=== PATIENT | male | born 1995 | race Caucasian/White ===

== ENCOUNTER 2020-11-17 04:27 | Emergency (ER) | payer BC ==
--- OUTSIDE RECORDS SUMMARY | 2020-11-17 04:31 | XMS REPORT | Continuity of Care Document ---
:1995 Author Organization [facility] t Address [address] [place] [id number] Care Team Providers Name Role Phone Responsible Provider, Not Yet Assigned Attending Clinician Georgette Rogel Attending Clinician [phone] Pancho Pace Attending Clinician Unavailable Tobi Attending Clinician Unavailable Lorne Attending Clinician Unavailable Adam Attending Clinician Unavailable Aguilera MedAdherence Attending Clinician [phone] Provider Attending Clinician Unavailable Adan Attending Clinician Unavailable Cupit Attending Clinician [phone] Josesito MedAdherence Attending Clinician Unavailable Luciana MedAdherence Attending Clinician Unavailable Abimael Attending Clinician Unavailable Elicia Attending Clinician Unavailable Shauna Rust Attending Clinician Cupit Unavailable [phone] Problems Condition Condition Condition Status Onset Resolution Last Treating Co mments Source Name Details Category Date Date Treatment Clinician Date PRe Condition Active 2020-02-04 Cupit, Leg acy Exposure 02-03 12:04:00 Behzad Commun i Prophylaxs 00:00: ty is 00 Health SCREENING, Condition Active 2015-01-19 Memoria PULMONARY 01-19 12:17:10 l TUBERCULOS 00:00: Newton forrester IS SCREENING, 00 PULMONARY TUBERCULOS IS Active 5 Condition 01/19/2015 Medical Group Constipati Problem Active 2018-10-26 M emoria on 10-15 13:55:12 l (disorder) 00:00: Newton forrester Constipati 00 on (disorder) Active 10/15/2014 Problem 10/26/2018 Data migrated from [facility] on 03/03/15. Medical Group CONSTIPATI Condition Active 2015-01-19 Memoria ON 10-15 12:17:10 l 00:00: Michael CONSTIPATI 00 ON Active 5 Condition 01/19/2015 Medical Group UNSPECIFIE Condition Active 2015-01-19 Memoria D 2- 12:17:10 l HEMORRHOID 00:00: Newton n S WITHOUT UNSPECIFIE 00 MENTION OF D COMPLICATI HEMORRHOID ON S WITHOUT MENTION OF COMPLICATI ON Active 5 Condition 01/19/2015 Medical Group OTHER Condition Active 2015-01-19 Mem oria SPEECH 2- 12:17:10 l DISTURBANC OTHER 00:00: Yessica nn E SPEECH 00 DISTURBANC E Active 10/15/2014 Condition 5 Medical Group Keratosis Problem Active 2018-10-26 Me moria pilaris 11-22 13:55:12 l (disorder) 00:00: Newton n Keratosis 00 pilaris (disorder) Active 11/22/2012 Problem 10/26/2018 Data migrated from [employer] on 01/25/15. Medical Group KERATOSIS Condition Active 2015-01-19 Memoria PILARIS 11-22 12:17:10 l 00:00: Michael KERATOSIS 00 PILARIS Active 11/22/2012 Condition 5 Medical Group Asthma Problem Active 2011-082018-10-26 Memor ia (disorder) 0-31 13:55:12 l Asthma 00:00: [place] (disorder) 00 Active 06/26/2012 Problem 10/26/2018 Data migrated from [employer] on 01/25/15. Medical Group WELL CHILD Condition Active 2011-082015-01-19 Memoria EXAMINATIO 0-31 12:17:10 l N WELL 00:00: [place] CHILD 00 EXAMINATIO N Active 06/26/2012 Condition 5 Medical Group ASTHMA Condition Active 2011-082015-01-19 Mem oria 0-31 12:17:10 l ASTHMA 00:00: Michael 00 Active 06/26/2012 Condition 5 Medical Group Acne Problem Active 2010-082018-10-26 Memor ia vulgaris 0-12 13:55:12 l (disorder) Acne 00:00: Newton n vulgaris 00 (disorder) Active 06/07/2011 Problem 10/26/2018 Data migrated from [facility] on 01/25/15. Medical Group ACNE Condition Active 2010-082015-01-19 Mem oria VULGARIS 0-12 12:17:10 l ACNE 00:00: [place] VULGARIS 00 Active 06/07/2011 Condition 5 Medical Group Allergic Problem Active 2009-082018-10-26 Mem oria rhinitis 0-05 13:55:12 l (disorder) Allergic 00:00: He rmann rhinitis 00 (disorder) Active 05/31/2010 Problem 10/26/2018 Data migrated from [facility] on 01/25/15. Medical Group ALLERGIC Condition Active 2009-082015-01-19 M emoria RHINITIS 0-05 12:17:10 l ALLERGIC 00:00: Newton n RHINITIS 00 Active 05/31/2010 Condition 5 Medical Group Medical Problem Active 2018-10-26 Paul julieta examinatio 13:55:12 l ns/reports Medical Her oliver status examinatio (finding) ns/reports status (finding) Active Problem 10/26/2018 Medical Group Recurrent Problem Active 2018-10-26 Me moria oral 13:55:12 l herpes Michael simplex Recurrent infection oral (disorder) herpes simplex infection (disorder) Active Problem 10/26/2018 Medical Group Streptococ Problem Resolve 2018-10-26 2018-10-26 Memoria lyssa sore d 5-16 13:55:12 13:55:12 l throat 00:00: Michael (disorder) Streptococ 00 lyssa sore throat (disorder) Resolved 01/09/2014 Problem 10/26/2018 Data migrated from [facility] on 03/12/15. Medical Group Otitis Problem Resolve 2018-10-26 2018-10-26 Memoria externa d 2-10 13:55:12 13:55:12 l (disorder) Otitis 00:00: Herm kamaljit externa 00 (disorder) Resolved 10/06/2010 Problem 10/26/2018 Data migrated from [facility] on 03/12/15. Medical Group Acute Problem Resolve 2009-082018-10-26 2018-10-26 Memoria pharyngiti d 0-05 13:55:12 13:55:12 l s Acute 00:00: Michael (disorder) pharyngiti 00 s (disorder) Resolved 05/31/2010 Problem 10/26/2018 Data migrated from [facility] on 03/12/15. Medical Group Viral Problem Resolve 2009-082018-10-26 2018-10-26 Memoria disease d 0-05 13:55:12 13:55:12 l (disorder) Viral 00:00: Yessica nn disease 00 (disorder) Resolved 05/31/2010 Problem 10/26/2018 Data migrated from [facility] on 03/12/15. Medical Group History of Past Illness Condition Condition Condition Status Onset Resolution Last Treating Co mments Source Name Details Category Date Date Treatment Clinician Date STREPTOCOC Condition Inactiv 2015-01-19 2015-01-19 Memoria LYSSA e 01-09 12:17:10 12:17:10 l PHARYNGITI 00:00: Newton n S STREPTOCOC 00 LYSSA PHARYNGITI S Inactive 01/09/2014 Condition 5 Medical Group OTITIS Condition Inactiv 2015-01-19 2015-01-19 Memoria EXTERNA e 2-10 12:17:10 12:17:10 l OTITIS 00:00: Michael EXTERNA 00 Inactive 10/06/2010 Condition 5 Medical Group FLU SHOT Condition Inactiv 2009-082015-01-19 2015-01-19 Memoria e 2-20 12:17:10 12:17:10 l FLU SHOT 00:00: Newton n 00 Inactive 08/15/2010 Condition 5 Medical Group ACUTE Condition Inactiv 2009-082015-01-19 2015-01-19 Memoria PHARYNGITI e 0-05 12:17:10 12:17:10 l S ACUTE 00:00: Michael PHARYNGITI 00 S Inactive 05/31/2010 Condition 5 Medical Group ASTHMA Condition Inactiv 2009-082015-01-19 2015-01-19 Memoria UNSPECIFIE e 0-05 12:17:10 12:17:10 l D WITH ASTHMA 00:00: Michael EXACERBATI UNSPECIFIE 00 ON D WITH EXACERBATI ON Inactive 05/31/2010 Condition 5 Medical Group VIRAL Condition Inactiv 2009-082015-01-19 2015-01-19 Memoria INFECTION e 0-05 12:17:10 12:17:10 l VIRAL 00:00: [place] INFECTION 00 Inactive 05/31/2010 Condition 5 Medical Group Allergies, Adverse Reactions, Alerts This patient has no known allergies or adverse reactions. Social History Social Habit Start Date Stop Date Quantity Comments Source social history 2020-08-12 2020-08-12 reviewed today [facility] reviewed E&M 15:32:43 15:32:43 Health drug use 2020-02-04 2020-02-04 Never [facility] ty 09:43:28 09:43:28 Health alcohol use 2020-02-04 2020-02-04 Never [facility] 09:43:28 09:43:28 Health patient considered 2020-02-04 2020-02-04 No [facility] to be homeless 09:43:28 09:43:28 Health passive cigarette 2020-02-04 2020-02-04 No [facility] smoke exposure 09:43:28 09:43:28 Health if the patient is 2020-02-04 2020-02-04 No [facility] using/has used a 09:43:28 09:43:28 Health vaping item, Current, Former, Never Used, Not asked Social History 2018-04-08 2018-04-08 [facility] 19:03:19 19:03:19 Smoking Status Start Date Stop Date Source Never smoked tobacco (finding) L [facility] Health Medications Ordered Filled Start Stop Current Ordering Indication Dosage Frequency Signature Comments Components Source Medication Medication Date Date Medication? Clinician (SIG) Name Name (EMTRICITAB Yes Georgette L 1{Table 1xD Take 1 [facility] INE-TENOFOV 6-15 Chanel t} tablet Commun i IR DF) 00:00: daily ty 200-300 MG 00 Health TABS DESCOVY 2020- No 1{Table 1xD 1 tab by Melody yu (EMTRICITAB 6-10 06-15 t} mouth Commun i INE-TENOFOV 00:00: 00:00 daily ty IR AF) 00 :00 Health 200-25 MG TABS acyclovir No 800 mg = 1 Me moria 800 mg oral 8-13 tab, PO, l tablet 19:33: Q8H, X 2 [place] day, # 6 tab, 2 Refill(s), [facility] [address] [place] [address] 2015-0 Yes Inser Memoria 2.5 % CREA 2-19 applicator l 00:00: tip in rectum and apply twice daily for 2-3 weeks SOLODYN 2013-0 Yes 1 tab Memoria [id number] 2-03 daily for l 00:00: acne TAZORAC 2013-0 Yes apply to Memori a CREA 2-03 face for l 00:00: acne PROAIR HFA 2011-08 Yes 2 puffs Paul julieta 108 (90 0-31 every l BASE) 00:00: 4-6hrs prn Newton n MCG/ACT 00 cough AERS PROAIR HFA 2011-08 Yes 2 puffs Paul julieta 108 (90 0-31 every l BASE) 00:00: 4-6hrs prn Newton n MCG/ACT 00 cough AERS CIPRODEX No instill Memori a 0.3-0.1 % 2-10 3-4 drops l SUSP 00:00: in affected ear tid for 7 days CIPRODEX No instill Memori a 0.3-0.1 % 2-10 3-4 drops l SUSP 00:00: in affected ear tid for 7 days CIPRODEX No instill Memori a 0.3-0.1 % 2-10 3-4 drops l SUSP 00:00: in affected ear tid for 7 days AUGMENTIN 0 No take one Paul julieta 875-125 MG 9-16 tab twice l TABS 00:00: daily for 14 days AUGMENTIN 0 No take one Paul julieta 875-125 MG 9-16 tab twice l TABS 00:00: daily for 14 days ALBUTEROL Yes Memoria SULFATE 9-09 l (2.5 00:00: Michael MG/3ML) 00 0.083% NEBU NEBULIZER/T No Memori a UBING/MOUTH 9-09 l PIECE KIT 00:00: ALBUTEROL Yes Memoria SULFATE 9-09 l (2.5 00:00: Michael MG/3ML) 00 0.083% NEBU Vital Signs Vital Name Observation Time Observation Value Comments Source oxygen saturation, 2020-02-04 09:43:28 97 /min Melody yu [facility] oximetry Health blood pressure, 2020-02-04 09:43:28 70 mm[Hg] [facility] diastolic Health blood pressure, 2020-02-04 09:43:28 121 mm[Hg] [facility] systolic Health respiratory rate E&M 2020-02-04 09:43:28 20 /min [facility] Health pulse rate 2020-02-04 09:43:28 93 /min [facility] Health temperature E&M 2020-02-04 09:43:28 98.6 [degF] [facility]&M 2020-02-04 09:43:28 223 [lb_av] [facility] weight in kilograms 2020-02-04 09:43:28 101.36 kg L [facility] E&M Health height in 2020-02-04 09:43:28 193.04 [facility] centimeters E[facility]M Health Weight 2018-04-08 19:01:00 [facility] [place] BMI Calculated 2018-04-08 19:01:00 Memori al Michael Height 2018-04-08 19:01:00 190.5 cm [facility] [place] Respitory Rate 2018-04-08 19:01:00 Memori al [place] Temperature Oral (F) 2018-04-08 19:01:00 98.6 F [facility] Heart Rate 2018-04-08 19:01:00 [facility] Systolic (mm Hg) 2018-04-08 19:01:00 Paul rial [place] Diastolic (mm Hg) 2018-04-08 19:01:00 Mem orial Michael Weight 2014-10-15 22:32:31 [facility] Temperature Oral (F) 2014-10-15 22:32:31 98.7 F [facility] Height 2014-10-15 22:32:31 [facility] [place] Respitory Rate 2014-10-15 22:32:31 Memori al Michael Heart Rate 2014-10-15 22:32:31 [facility] [place] Systolic (mm Hg) 2014-10-15 22:32:31 Paul rial [place] Diastolic (mm Hg) 2014-10-15 22:32:31 Mem orial Michael Height 2014-06-08 21:34:51 [facility] Weight 2014-06-08 21:34:51 [facility] [place] Temperature Oral (F) 2014-06-08 21:34:51 98 F [facility] [place] Respitory Rate 2014-06-08 21:34:51 Memori al Michael Heart Rate 2014-06-08 21:34:51 [facility] Systolic (mm Hg) 2014-06-08 21:34:51 Paul rial Michael Diastolic (mm Hg) 2014-06-08 21:34:51 Mem orial Michael Weight 2014-01-09 16:45:21 [facility] Temperature Oral (F) 2014-01-09 16:45:21 99.4 F [facility] [place] Respitory Rate 2014-01-09 16:45:21 Memori al Michael Heart Rate 2014-01-09 16:45:21 [facility] [place] Systolic (mm Hg) 2014-01-09 16:45:21 Paul rial [place] Diastolic (mm Hg) 2014-01-09 16:45:21 Mem orial Michael Height 2013-09-29 21:47:50 [facility] Weight 2013-09-29 21:47:50 [facility] Temperature Oral (F) 2013-09-29 21:47:50 97 F [facility] Respitory Rate 2013-09-29 21:47:50 Memori al Michael Heart Rate 2013-09-29 21:47:50 [facility] [place] Systolic (mm Hg) 2013-09-29 21:47:50 Paul rial Michael Diastolic (mm Hg) 2013-09-29 21:47:50 Mem orial [place] Height 2013-06-25 20:53:31 [facility] Weight 2013-06-25 20:53:31 [facility] Temperature Oral (F) 2013-06-25 20:53:31 98 F [facility] Respitory Rate 2013-06-25 20:53:31 Memori al [place] Heart Rate 2013-06-25 20:53:31 [facility] Michael Systolic (mm Hg) 2013-06-25 20:53:31 Paul rial [place] Diastolic (mm Hg) 2013-06-25 20:53:31 Mem orial [place] Height 2012-11-22 19:13:41 [facility] Michael Weight 2012-11-22 19:13:41 [facility] Temperature Oral (F) 2012-11-22 19:13:41 98.7 F [facility] Respitory Rate 2012-11-22 19:13:41 Memori al Michael Heart Rate 2012-11-22 19:13:41 [facility] Systolic (mm Hg) 2012-11-22 19:13:41 Paul rial Michael Diastolic (mm Hg) 2012-11-22 19:13:41 Mem orial Michael Height 2012-06-26 20:27:50 [facility] [place] Weight 2012-06-26 20:27:50 [facility] Michael Respitory Rate 2012-06-26 20:27:50 Memori al [place] Systolic (mm Hg) 2012-06-26 20:27:50 Paul rial [place] Diastolic (mm Hg) 2012-06-26 20:27:50 Mem orial [place] Temperature Oral (F) 2012-06-26 20:27:50 98.5 F [facility] Michael Heart Rate 2012-06-26 20:27:50 [facility] Weight 2011-06-07 20:37:10 [facility] [place] Height 2011-06-07 20:37:10 [facility] Michael Temperature Oral (F) 2011-06-07 20:37:10 98.9 F [facility] Respitory Rate 2011-06-07 20:37:10 Memori al Michael Weight 2010-10-06 20:45:21 [facility] Temperature Oral (F) 2010-10-06 20:45:21 98.7 F [facility] [place] Respitory Rate 2010-10-06 20:45:21 Memori al [place] Weight 2010-05-31 18:36:12 [facility] Michael Respitory Rate 2010-05-31 18:36:12 Memori al [place] Heart Rate 2010-05-31 18:36:12 [facility] [place] Temperature Oral (F) 2010-05-31 18:36:12 98.7 F [facility] Height 2010-05-31 18:36:12 [facility] Height 2009-03-01 16:29:16 [facility] Weight 2009-03-01 16:29:16 [facility] [place] Temperature Oral (F) 2009-03-01 16:29:16 99.2 F [facility] [place] Heart Rate 2009-03-01 16:29:16 [facility] Michael Respitory Rate 2009-03-01 16:29:16 Memori al [place] Systolic (mm Hg) 2009-03-01 16:29:16 Paul rial [place] Diastolic (mm Hg) 2009-03-01 16:29:16 Mem orial Michael Height 2008-04-13 16:29:16 [facility] [place] Weight 2008-04-13 16:29:16 [facility] Temperature Oral (F) 2008-04-13 16:29:16 98.7 F [facility] [place] Heart Rate 2008-04-13 16:29:16 [facility] Respitory Rate 2008-04-13 16:29:16 Memori al Michael Systolic (mm Hg) 2008-04-13 16:29:16 Paul rial [place] Diastolic (mm Hg) 2008-04-13 16:29:16 Mem orial [place] Height 2006-09-11 17:29:16 [facility] Weight 2006-09-11 17:29:16 [facility] Temperature Oral (F) 2006-09-11 17:29:16 98.0 F [facility] [place] Heart Rate 2006-09-11 17:29:16 [facility] Respitory Rate 2006-09-11 17:29:16 Memori al Michael Systolic (mm Hg) 2006-09-11 17:29:16 Paul rial [place] Diastolic (mm Hg) 2006-09-11 17:29:16 Mem orial Michael Height 2006-04-04 16:29:16 [facility] Weight 2006-04-04 16:29:16 [facility] [place] Temperature Oral (F) 2006-04-04 16:29:16 98.6 F [facility] [place] Heart Rate 2006-04-04 16:29:16 [facility] Michael Respitory Rate 2006-04-04 16:29:16 Memori al [place] Systolic (mm Hg) 2006-04-04 16:29:16 Paul rial [place] Diastolic (mm Hg) 2006-04-04 16:29:16 Mem orial [place] Height 2005-03-30 16:29:16 [facility] Weight 2005-03-30 16:29:16 [facility] [place] Temperature Oral (F) 2005-03-30 16:29:16 98.3 F [facility] Heart Rate 2005-03-30 16:29:16 [facility] [place] Respitory Rate 2005-03-30 16:29:16 Memori al Michael Systolic (mm Hg) 2005-03-30 16:29:16 Paul rial [place] Diastolic (mm Hg) 2005-03-30 16:29:16 Mem orial Michael Height 2003-03-06 16:29:16 [facility] [place] Weight 2003-03-06 16:29:16 [facility] [place] Temperature Oral (F) 2003-03-06 16:29:16 100.0 F [facility] Heart Rate 2003-03-06 16:29:16 [facility] [place] Respitory Rate 2003-03-06 16:29:16 Memori al Michael Systolic (mm Hg) 2003-03-06 16:29:16 Paul rial [place] Diastolic (mm Hg) 2003-03-06 16:29:16 Mem orial [place] Height 2002-05-05 16:29:16 [facility] Weight 2002-05-05 16:29:16 [facility] Temperature Oral (F) 2002-05-05 16:29:16 99.5 F [facility] [place] Heart Rate 2002-05-05 16:29:16 [facility] [place] Respitory Rate 2002-05-05 16:29:16 Memori al Michael Systolic (mm Hg) 2002-05-05 16:29:16 Paul rial Michael Diastolic (mm Hg) 2002-05-05 16:29:16 Mem orial Michael Height 1999-10-31 17:29:16 [facility] [place] Weight 1999-10-31 17:29:16 [facility] [place] Temperature Oral (F) 1999-10-31 17:29:16 100.5 F [facility] Height 1999-04-05 16:29:16 [facility] Weight 1999-04-05 16:29:16 [facility] Temperature Oral (F) 1999-04-05 16:29:16 98.5 F [facility] Height 1998-12-13 16:29:16 [facility] [place] Weight 1998-12-13 16:29:16 [facility] [place] Temperature Oral (F) 1998-12-13 16:29:16 99.3 F [facility] [place] Height 1998-09-14 17:29:16 [facility] [place] Weight 1998-09-14 17:29:16 [facility] Temperature Oral (F) 1998-09-14 17:29:16 98.6 F [facility] [place] Height 1998-06-09 16:29:16 [facility] Weight 1998-06-09 16:29:16 [facility] Temperature Oral (F) 1998-06-09 16:29:16 98.8 F [facility] [place] Height 1998-03-11 16:29:16 [facility] [place] Weight 1998-03-11 16:29:16 [facility] Temperature Oral (F) 1998-03-11 16:29:16 99.3 F [facility] [place] Height 1998-01-04 16:29:16 [facility] [place] Weight 1998-01-04 16:29:16 [facility] Temperature Oral (F) 1998-01-04 16:29:16 98.9 F [facility] [place] Height 1997 17:29:16 [facility] Weight 1997 17:29:16 [facility] Temperature Oral (F) 1997 17:29:16 98.3 F [facility] Height 1997 17:29:16 [facility] [place] Weight 1997 17:29:16 [facility] Temperature Oral (F) 1997 17:29:16 99.4 F [facility] [place] Procedures Procedure Date / Time Performed Performing Clinician [facility] 2020-03-01 16:40:26 Mirta Arellanou nitcarrie Education/Supportive Health Counseling Health 2020-02-04 09:24:49 ProviderSky Education/[facility] Services Health Counseling Encounters Start End Encounter Admission Attending Care Care Encounter Source Date/Time Date/Time Type Type Clinicians Facility Department ID 2020-08-13 2020-08-13 Office Responsible [facility] Encoun ter/ Legacy 00:00:00 00:00:00 Visit Provider, [id number] C ommuni Not Yet [id number] [facility] 2020-08-13 2020-08-13 Office Responsible [facility] Encoun ter/ Legacy 00:00:00 00:00:00 Visit Provider, [id number] C ommuni Not Yet [id number] [facility] 2020-08-12 2020-08-12 Office Georgette Chanel [facility] Enco unter/ Legacy 00:00:00 00:00:00 Visit Ritesh Pace [phone] Communi [id number] [facility] 2020-07-25 2020-07-25 Office Georgette Chanel [facility] Enco unter/ Legacy 00:00:00 00:00:00 Visit Hernan Brittonssica [phone] Communi [id number] ty Health 2020-07-25 2020-07-25 Office Chanel, Georgette [facility] Encoun ter/ Legacy 00:00:00 00:00:00 Visit Khalif [id number] Com gilberto [id number] ty Health 2020-07-16 2020-07-16 Office Chanel, Georgette Cuadra [facility] Enco unter/ Legacy 00:00:00 00:00:00 Visit Elisa Pradhan [id number] Communi [id number] ty Health 2020-07-16 2020-07-16 Office Chanel, Georgette [facility] Encoun ter/ Legacy 00:00:00 00:00:00 Visit Khalif [id number] Com gilberto [id number] ty Health 2020-07-09 2020-07-09 Office Dick Medina [facility] Encounte r/ Legacy 00:00:00 00:00:00 Visit Daylin [id number] Com gilberto [id number] ty Health 2020-06-10 2020-06-10 Office Chanel, Georgette Cuadra [facility] Enco unter/ Legacy 00:00:00 00:00:00 Visit Maegan Watts [id number] Communi [id number] ty Health 2020-03-12 2020-03-12 Office Chanle, Georgette Cuadra [facility] Enco unter/ Legacy 00:00:00 00:00:00 Visit Ritesh Pace [phone] Communi [id number] ty Health 2020-03-01 2020-03-01 Office Provider, [facility] Encounter/ Legacy 00:00:00 00:00:00 Visit Mirta Arellano [id number] Communi [id number] ty Health 2020-02-12 2020-02-12 Office Cupit, [facility] Encounter/ Legacy 00:00:00 00:00:00 Visit Behzad [id number] Com gilberto 860294 ty Health 2020-02-09 2020-02-09 Office Cupit, [facility] Encounter/ Legacy 00:00:00 00:00:00 Visit Behzad [id number] Com gilberto 528278 ty Health 2020-02-09 2020-02-09 Office Cupit, [facility] Encounter/ Legacy 00:00:00 00:00:00 Visit Behzad [id number] Com gilberto [id number] ty Health 2020-02-06 2020-02-06 Office Cupit, [facility] Encounter/ Legacy 00:00:00 00:00:00 Visit Behzad [id number] Com gilberto 217754 ty Health 2020-02-05 2020-02-05 Office Cupit, Behzad ARNOLD Enc nter/ Legacy 00:00:00 00:00:00 Visit Josesito Mariee Madeline [id number] Kevin Mariee Michelle [id number] ty Health 2020-02-04 2020-02-04 Office Cupit, [facility] Encounter/ Legacy 00:00:00 00:00:00 Visit Behzad [id number] Com gilberto 930556 ty Health 2020-02-04 2020-02-04 Office Cupit, [facility] Encounter/ Legacy 00:00:00 00:00:00 Visit Behzad [id number] Com gilberto 691140 ty Health 2020-02-04 2020-02-04 Office Cupit, [facility] Encounter/ Legacy 00:00:00 00:00:00 Visit Behzad [id number] Com gilberto [id number] ty Health 2020-02-04 2020-02-04 Office Cupit, Behzad DUNN [facility] Encou nter/ Legacy 00:00:00 00:00:00 Visit Iris Varghese [id number] Communi [id number] Health 2020-02-04 2020-02-04 Office Provider, Public Health Services [facility] Encounter/ Legacy 00:00:00 00:00:00 Visit Heriberto Rubi [id number] Communi [id number] ty Health 2020-02-04 2020-02-04 Office Cupit, [facility] Encounter/ Legacy 00:00:00 00:00:00 Visit Behzad [id number] Com gilberto [id number] Health 2018-04-08 2018-04-08 Outpatient [facility] [id number] 13:45:00 23:59:59 Amada Merlos [facility] 2018-04-04 2018-04-05 Outpatient [facility] [id number] 13:25:00 23:59:59 06 2018-04-01 2018-04-02 Outpatient [facility] [id number] 15:25:00 23:59:59 05 2017-08-17 2017-08-18 Outpatient [facility] [id number] 10:22:00 23:59:59 04 Results Test Description Test Time Test Comments Results Result Comments Source HIV-CMIA (Chemiluminescent Microparticle Immuno Assay) 07-16 12:51:00 Test Item Value Reference Range Interpretation Comme nts HIV-CMIA (Chemiluminescent Microparticle Immuno Assay) Non R eactive Non Reactive (test code = 699496) [facility] [id number] 12:51:00 Test Item Value Reference Range Interpretation Comments rapid plasma reagin antibody, Non Reactive Non Reactive serum (test code = 5291-0) [facility]), [id number] 12:51:00 Test Item Value Reference Range Interpretation Comments alanine aminotransferase (SGPT), serum 18 1/L 0-44 (test code = 1742-6) [facility] ([facility]), [id number] 12:51:00 Test Item Value Reference Range Interpretation Comments aspartate aminotransferase (SGOT), 17 1/L 0-40 serum (test code = 1920-8) [facility], [id number] 12:51:00 Test Item Value Reference Range Interpretation Comments alkaline phosphatase, serum (test code 52 1/L 39-117 = 1783-0) [facility], [id number] 12:51:00 Test Item Value Reference Range Interpretation Comments bilirubin, serum, total (test code 0.7 mg/dL 0.0-1.2 = 1975-2) [facility] ratio, [id number] 12:51:00 Test Item Value Reference Range Interpretation Comments albumin/globulin ratio, serum (test 2.3 1.2-2.2 H code = 1759-0) [facility] [id number] 12:51:00 Test Item Value Reference Range Interpretation Comments globulin, serum (test code = 2336-6) 2.2 1.5-4.5 [facility], [id number] 12:51:00 Test Item Value Reference Range Interpretation Comments albumin, serum (test code = 1751-7) 5.0 g/dL 4.1-5.2 [facility], total, [id number] 12:51:00 Test Item Value Reference Range Interpretation Comments protein, total, serum (test code = 7.2 g/dL 6.0-8.5 2885-2) [facility], [id number] 12:51:00 Test Item Value Reference Range Interpretation Comments calcium, serum (test code = 1999-) 9.8 mg/dL 8.7-10.2 [facility], venous [id number] 12:51:00 Test Item Value Reference Range Interpretation Comments carbon dioxide, venous blood (test 24 mmol/L code = 2027-1) [facility]chloride, [id number] 12:51:00 Test Item Value Reference Range Interpretation Comments chloride, serum (test code = 101 mmol/L 96-106 5-0) [facility]potassium, [id number] 12:51:00 Test Item Value Reference Range Interpretation Comments potassium, serum (test code = 4.1 mmol/L 3.5-5.2 2823-3) [facility] Hospitalsodium, [id number] 12:51:00 Test Item Value Reference Range Interpretation Comments sodium, serum (test code = 2951-2) 140 mmol/L 134-144 [facility]urea nitrogen/creatinine ratio, [id number] 12:51:00 Test Item Value Reference Range Interpretation Comments urea nitrogen/creatinine ratio, serum 05-16 (test code = 3097-3) [facility] HospitaleGFR if [id number] 12:51:00 Test Item Value Reference Range Interpretation Comments eGFR if 147 >59 (test code = 77467-1) mL/min/((173/100).m2) [facility] HospitalEstimated Glomerular Filtration Rate (calc)2020-07-16 12:51:00 Test Item Value Reference Range Interpretation Comments Estimated Glomerular 127 >59 Filtration Rate (calc) mL/min/((173/100).m2 (test code = 79810-1) ) [facility]creatinine, [id number] 12:51:00 Test Item Value Reference Range Interpretation Comments creatinine, serum (test code = 0.79 mg/dL 0.76-1.27 2160-0) [facility] nitrogen, [id number] 12:51:00 Test Item Value Reference Range Interpretation Comments urea nitrogen, blood (test code = 9 mg/dL 6-20 3094-0) [facility]blood glucose, [id number] 12:51:00 Test Item Value Reference Range Interpretation Comments blood glucose, random (test code = 87 mg/dL 65-99 2339-0) [facility] HospitalNeisseria gonorrhoeae, throat [id number] 15:24:00 Test Item Value Reference Range Interpretation Comments Neisseria gonorrhoeae, throat Negative Negative culture (test code = 3553) [facility] HospitalGonorrhea Culture [id number] 15:24:00 Test Item Value Reference Range Interpretation Comments Gonorrhea Culture Rectum (test code Negative Negative = 26914498) [facility] Hospitalhepatitis A antibody, [id number] 11:22:00 Test Item Value Reference Range Interpretation Comments hepatitis A antibody, total (test Negative Negative code = 75) [facility] HospitalHIV-CMIA (Chemiluminescent Microparticle Immuno Assay) 2020-02-04 11:22:00 Test Item Value Reference Range Interpretation Comments HIV-CMIA (Chemiluminescent Non Reactive Non Reactive Microparticle Immuno Assay) (test code = 779622) [facility] Hospitalrapid plasma reagin antibody, [id number] 11:22:00 Test Item Value Reference Range Interpretation Comments rapid plasma reagin antibody, Non Reactive Non Reactive serum (test code = 5291-0) [facility] HospitalNeisseria gonorrhoeae DNA [id number] 11:22:00 Test Item Value Reference Range Interpretation Comments Neisseria gonorrhoeae DNA probe Negative Negative (test code = 98714-8) [facility] Hospitalchlamydia DNA [id number] 11:22:00 Test Item Value Reference Range Interpretation Comments chlamydia DNA probe (test code = Negative Negative 43438-8) [facility] Hospitalalanine aminotransferase (SGPT), [id number] 11:22:00 Test Item Value Reference Range Interpretation Comments alanine aminotransferase (SGPT), serum 17 1/L 0-44 (test code = 1742-6) [facility] Hospitalaspartate aminotransferase (SGOT), [id number] 11:22:00 Test Item Value Reference Range Interpretation Comments aspartate aminotransferase (SGOT), 11 1/L 0-40 serum (test code = 1920-8) [facility] Hospitalalkaline phosphatase, [id number] 11:22:00 Test Item Value Reference Range Interpretation Comments alkaline phosphatase, serum (test code 56 1/L 39-117 = 1783-0) [facility] Healthbilirubin, serum, [id number] 11:22:00 Test Item Value Reference Range Interpretation Comments bilirubin, serum, total (test code 0.8 mg/dL 0.0-1.2 = 1975-2) [facility] Healthalbumin/globulin ratio, [id number] 11:22:00 Test Item Value Reference Range Interpretation Comments albumin/globulin ratio, serum (test 2.1 1.2-2.2 code = 1759-0) [facility] Healthglobulin, [id number] 11:22:00 Test Item Value Reference Range Interpretation Comments globulin, serum (test code = 2336-6) 2.3 1.5-4.5 [facility] Healthalbumin, [id number] 11:22:00 Test Item Value Reference Range Interpretation Comments albumin, serum (test code = 1751-7) 4.9 g/dL 4.1-5.2 [facility] Healthprotein, total, [id number] 11:22:00 Test Item Value Reference Range Interpretation Comments protein, total, serum (test code = 7.2 g/dL 6.0-8.5 2885-2) [facility]calcium, [id number] 11:22:00 Test Item Value Reference Range Interpretation Comments calcium, serum (test code = 1999-8) 9.9 mg/dL 8.7-10.2 [facility] Hospitalcarbon dioxide, venous [id number] 11:22:00 Test Item Value Reference Range Interpretation Comments carbon dioxide, venous blood (test 24 mmol/L 20- code = 7-1) [facility] Hospitalchloride, [id number] 11:22:00 Test Item Value Reference Range Interpretation Comments chloride, serum (test code = 103 mmol/L 96-106 2075-0) [facility] Healthpotassium, [id number] 11:22:00 Test Item Value Reference Range Interpretation Comments potassium, serum (test code = 4.1 mmol/L 3.5-5.2 2823-3) [facility] Healthsodium, [id number] 11:22:00 Test Item Value Reference Range Interpretation Comments sodium, serum (test code = 2951-2) 139 mmol/L 134-144 [facility]urea nitrogen/creatinine ratio, [id number] 11:22:00 Test Item Value Reference Range Interpretation Comments urea nitrogen/creatinine ratio, serum 15 9-20 (test code = 3097-3) [facility] HealtheGFR if [id number] 11:22:00 Test Item Value Reference Range Interpretation Comments eGFR if 151 >59 (test code = 80889-6) mL/min/((173/100).m2) [facility] HospitalEstimated Glomerular Filtration Rate (calc)2020-02-04 11:22:00 Test Item Value Reference Range Interpretation Comments Estimated Glomerular 131 >59 Filtration Rate (calc) mL/min/((173/100).m2 (test code = 28558-4) ) [facility] Hospitalcreatinine, [id number] 11:22:00 Test Item Value Reference Range Interpretation Comments creatinine, serum (test code = 0.74 mg/dL 0.76-1.27 L 2160-0) [facility] Hospitalurea nitrogen, [id number] 11:22:00 Test Item Value Reference Range Interpretation Comments urea nitrogen, blood (test code = 11 mg/dL 6-20 3094-0) [facility] Hospitalblood glucose, [id number] 11:22:00 Test Item Value Reference Range Interpretation Comments blood glucose, random (test code = 91 mg/dL 65-99 2339-0) [facility] Hospitalimmature granulocytes, percentage of total cells, blood 2020-02-04 11:22:00 Test Item Value Reference Range Interpretation Comments immature granulocytes, percentage of 0 % total cells, blood (test code = 33367-5) [facility] Hospitalbasophil count, [id number] 11:22:00 Test Item Value Reference Range Interpretation Comments basophil count, absolute (test 0.0 x10E3/uL 0.0-0.2 code = 55608-2) [facility] HealthEosinophil Absolute [id number] 11:22:00 Test Item Value Reference Range Interpretation Comments Eosinophil Absolute Count (test 0.0 X10E3/UL 0.0-0.4 code = 49388-4) [facility] Healthmonocyte count, blood, [id number] 11:22:00 Test Item Value Reference Range Interpretation Comments monocyte count, blood, automated 0.5 X10E3/UL 0.1-0.9 (test code = 742-7) [facility] Hospitallymphocyte count, blood, [id number] 11:22:00 Test Item Value Reference Range Interpretation Comments lymphocyte count, blood, 2.4 X10E3/UL 0.7-3.1 automated (test code = 731-0) [facility] HospitalAbsolute [id number] 11:22:00 Test Item Value Reference Range Interpretation Comments Absolute Neutrophils (test code 3.7 X10E3/UL 1.4-7.0 = 03125-3) [facility] Healthbasophils as percent of blood [id number] 11:22:00 Test Item Value Reference Range Interpretation Comments basophils as percent of blood 1 % leukocytes (test code = 707-0) [facility]aleosinophils as percent of blood atodppxbhv0396-35-18 11:22:00 Test Item Value Reference Range Interpretation Comments eosinophils as percent of blood 0 % leukocytes (test code = 713-8) [facility] Healthmonocytes as percent of blood [id number] 11:22:00 Test Item Value Reference Range Interpretation Comments monocytes as percent of blood 8 % leukocytes (test code = 5905-5) [facility] Hospitallymphocytes as percent of blood [id number] 11:22:00 Test Item Value Reference Range Interpretation Comments lymphocytes as percent of blood 36 % leukocytes (test code = 736-9) [facility] Hospitalneutrophils as percent of blood [id number] 11:22:00 Test Item Value Reference Range Interpretation Comments neutrophils as percent of blood 55 % leukocytes (test code = 770-8) [facility] Hospitalplatelet [id number] 11:22:00 Test Item Value Reference Range Interpretation Comments platelet count (test code = 283 X10E3/UL 150-450 777-3) [facility] Hospitalred blood cell distribution [id number] 11:22:00 Test Item Value Reference Range Interpretation Comments red blood cell distribution width 11.7 % 11.6-15.4 (test code = 788-0) [facility] corpuscular hemoglobin concentration, [id number] 11:22:00 Test Item Value Reference Range Interpretation Comments mean corpuscular hemoglobin 34.0 G/DL 31.5-35.7 concentration, RBC (test code = 786-4) [facility] corpuscular hemoglobin, [id number] 11:22:00 Test Item Value Reference Range Interpretation Comments mean corpuscular hemoglobin, RBC 32.0 pg 26.6-33.0 (test code = 785-6) [facility] corpuscular volume, [id number] 11:22:00 Test Item Value Reference Range Interpretation Comments mean corpuscular volume, RBC (test code 94 fL 79-97 = 787-2) [facility] Hospitalhematocrit, [id number] 11:22:00 Test Item Value Reference Range Interpretation Comments hematocrit, blood (test code = 4544-3) 46.7 % 37.5-51.0 [facility] Hospitalhemoglobin, [id number] 11:22:00 Test Item Value Reference Range Interpretation Comments hemoglobin, blood (test code = 15.9 g/dL 13.0-17.7 718-7) [facility] Hospitalerythrocyte (RBC) [id number] 11:22:00 Test Item Value Reference Range Interpretation Comments erythrocyte (RBC) count (test 4.97 X10E6/UL 4.14-5.80 code = 789-8) [facility] Hospitalleukocyte count, [id number] 11:22:00 Test Item Value Reference Range Interpretation Comments leukocyte count, blood (test 6.6 X10E3/UL 3.4-10.8 code = 6690-2) [facility] Hospitalhepatitis C antibody, [id number] 11:22:00 Test Item Value Reference Range Interpretation Comments hepatitis C antibody, serum (test code <0.1 0.0-0.9 = 5199-5) [facility] [id number] 11:22:00 Test Item Value Reference Range Interpretation Comments hepatitis B surface antibody (test Reactive code = 78) [facility] core antibody, [id number] 11:22:00 Test Item Value Reference Range Interpretation Comments hepatitis B core antibody, total Negative Negative (test code = 77) [facility] [place] B surface [id number] 11:22:00 Test Item Value Reference Range Interpretation Comments hepatitis B surface antigen (test Negative Negative code = 79) [facility] HospitalHIV rapid test [id number] 09:23:16 Test Item Value Reference Range Interpretation Comments HIV rapid test results (test code = negative 94743) [facility]
[2020-11-17 05:14] LABS: Absolute Lymphocytes (CBC) 1.6 K/uL (0.7-4.9); Basophils % 0.4 % (0-1.3); Hematocrit 43.8 % (39.6-49.0); Lymphocytes % 14.3 % (15.3-44.8); RBC Red Blood Cell Count 4.69 M/uL (4.33-5.43)
[2020-11-17] MEDS ORDERED: MAGNES/ALUMIN/SIMET 30ML UCUP ONE (05:18)
[2020-11-17] MEDS ORDERED: PANTOPRAZOLE 40 MG INJ ONE (05:18)
[2020-11-17] MEDS ORDERED: ONDANSETRON 4 MG/2 ML VIAL ONE (05:18)
[2020-11-17] MEDS ORDERED: MORPHINE 2 MG/ML SYR ONE (05:18)
[2020-11-17] MEDS ORDERED: NA CHLORIDE 0.9% 1,000 ML ONE (05:18)
[2020-11-17] MEDS ORDERED: LIDOCAINE VISCOUS 2% SOLN 15 ML UDC ONE (05:18)
[2020-11-17 05:29] LABS: ALT/SGPT 24 U/L (12-78); AST/SGOT 13 U/L (15-37); Albumin 4.4 g/dL (3.4-5.0); Alkaline Phosphatase 52 U/L (45-117); BUN Blood Urea Nitrogen 11 mg/dL (7-18); Bicarbonate 28 mmol/L (21-32); Bilirubin Direct 0.1 mg/dL (0-0.2); Bilirubin Total 0.4 mg/dL (0.2-1.0); Glucose Level 105 mg/dL (74-106); Lipase 92 U/L (73-393); Potassium 3.7 mmol/L (3.5-5.1); Protein, Total 7.9 g/dL (6.4-8.2); Sodium Level 141 mmol/L (136-145)
--- NOTE | 2020-11-17 06:32 | ER ---
Nurse's Notes [facility] Name: Chilo Mart Age: 25 yrs Sex: Male : 1995 Arrival Date: 11/17/2020 Time: 04:35 Bed 7 Private MD: Diagnosis: Abdominal tenderness;Functional dyspepsia Presentation: 11/17 04:43 Chief complaint: Patient states: upper abdominal pain that started at midnight, took em some acid reflux medicine but threw up 3 times, denies fever or diarrhea. Coronavirus screen: Client denies travel out of the [place] in the last 14 days. Ebola Screen: Patient negative for fever greater than or equal to 101.5 degrees Fahrenheit, and additional compatible Ebola Virus Disease symptoms Patient denies exposure to infectious person. Patient denies travel to an Ebola-affected area in the 21 days before illness onset. No symptoms or risks identified at this time. Initial Sepsis Screen: Does the patient meet any 2 criteria? No. Patient's initial sepsis screen is negative. Does the patient have a suspected source of infection? No. Patient's initial sepsis screen is negative. Risk Assessment: Do you want to hurt yourself or someone else? Patient reports no desire to harm self or others. Onset of symptoms was November 17, 2020. 04:43 Method Of Arrival: Ambulatory em 04:43 Acuity: JIMENEZ 3 em Historical: - Allergies: 04:48 No Known Allergies; em - Home Meds: 04:48 None [Active]; em - PMHx: 04:48 None; em - Immunization history:: Adult Immunizations up to date. - Social history:: Smoking status: Patient denies any tobacco usage or history of. - Family history:: not pertinent. Screenin:17 Abuse screen: Denies threats or abuse. Denies injuries from another. Nutritional mg2 screening: No deficits noted. Tuberculosis screening: No symptoms or risk factors identified. Fall Risk No IV (0 pts). Assessment: 05:12 General: Appears in no apparent distress. comfortable, Behavior is calm, cooperative. mg2 Pain: Complains of pain in abdomen. Neuro: Level of Consciousness is awake, alert, obeys commands, Oriented to person, place, time, situation. Cardiovascular: Capillary refill < 3 seconds Patient's skin is warm and dry. Respiratory: Airway is patent Respiratory effort is even, unlabored, Respiratory pattern is regular, symmetrical. GI: Bowel sounds present X 4 quads. Abd is soft. GI: Reports upper abdominal pain, vomiting. : No signs and/or symptoms were reported regarding the genitourinary system. EENT: No signs and/or symptoms were reported regarding the EENT system. Derm: Skin is intact, is healthy with good turgor, Skin is pink, warm \T\ dry. normal. Musculoskeletal: Circulation, motion, and sensation intact. Capillary refill < 3 seconds. 06:42 Reassessment: Patient appears in no apparent distress at this time. Patient denies pain mg2 at this time. Patient states feeling better. Patient states symptoms have improved. 06:43 Reassessment: patient up for dc after ultrasound is done and negative/clear. mg2 07:00 Reassessment: Patient appears in no apparent distress at this time. No changes from jl7 previously documented assessment. Patient and/or family updated on plan of care and expected duration. Pain level reassessed. Patient is alert, oriented x 3, equal unlabored respirations, skin warm/dry/pink. 08:00 Reassessment: Patient appears in no apparent distress at this time. No changes from jl7 previously documented assessment. Patient and/or family updated on plan of care and expected duration. Pain level reassessed. Patient is alert, oriented x 3, equal unlabored respirations, skin warm/dry/pink. Vital Signs: 04:43 BP 128 / 85; Pulse 87; Resp 18; Temp 99.1(O); Pulse Ox 99% on R/A; Weight 108.86 kg; em Height 6 ft. 3 in. (190.50 cm); Pain 2/10; 06:43 Pulse 78; Resp 18; Pulse Ox 100% on R/A; Pain 0/10; mg2 08:55 BP 121 / 71; Pulse 78; Resp 17; Pulse Ox 96% ; jl7 04:43 Body Mass Index 30.00 (108.86 kg, 190.50 cm) em ED Course: 04:35 Patient arrived in ED. am4 04:39 Scott Vences RN is Primary Nurse. mg2 04:43 Ernesto Lopez MD is Attending Physician. [facility] 04:47 Triage completed. em 04:48 Arm band placed on. em 05:00 Inserted saline lock: 20 gauge in left upper arm, using aseptic technique. Blood mg2 collected. 05:12 No provider procedures requiring assistance completed. mg2 05:18 Patient has correct armband on for positive identification. mg2 06:01 CT Abd/Pelvis - IV Contrast Only In Process Unspecified. EDMS 06:30 Rosi Mitchell MD is Referral Physician. maryanne 06:32 Nestor Soliman MD is Referral Physician. maryanne 06:48 Abdomen Exam Limited In Process Unspecified. EDMS 07:08 Primary Nurse role handed off by Scott Vences, ANJALI bd 07:14 Veronica Lockett, ANJALI is Primary Nurse. tw2 07:19 Awaiting radiology results. Awaiting: prior to discharge. tw2 08:55 IV discontinued, intact, bleeding controlled, No redness/swelling at site. Pressure jl7 dressing applied. Administered Medications: 05:03 Drug: NS 0.9% 1000 ml Route: IV; Rate: 1 bolus; Site: left antecubital; wh 06:22 Follow up: Response: No adverse reaction; IV Status: Completed infusion; IV Intake: mg2 1000ml 05:05 Drug: ProTONIX 40 mg Route: IVP; Site: left antecubital; wh 06:22 Follow up: Response: No adverse reaction mg2 05:07 Drug: morphine 2 mg {Note: RASS 0.} Route: IVP; Site: left antecubital; wh 06:22 Follow up: Response: No adverse reaction mg2 05:09 Drug: Zofran (Ondansetron) 4 mg Route: IVP; Site: left antecubital; wh 06:22 Follow up: Response: No adverse reaction mg2 05:11 Drug: GI Cocktail without - (Maalox Suspension 30 ml, Lidocaine Liquid 2 % 15 wh ml) Route: PO; 06:22 Follow up: Response: No adverse reaction mg2 06:21 Drug: NS 0.9% 1000 ml Route: IV; Rate: 125 ml/hr; Site: left upper arm; mg2 08:57 Follow up: Response: No adverse reaction; IV Status: Completed infusion jl7 Intake: 06:22 IV: 1000ml; Total: 1000ml. mg2 Outcome: 06:31 Discharge ordered by . maryanne 08:55 Discharged to home ambulatory. jl7 08:55 Condition: stable 08:55 Discharge instructions given to patient, Instructed on discharge instructions, follow up and referral plans. Demonstrated understanding of instructions, follow-up care, medications, Prescriptions given X 4. 08:59 Patient left the ED. jl7 Signatures: Dispatcher [employer] Viridiana Castro Corey, MD MD cha Munoz, Edgar, RN RN Veronica Loera RN RN tw2 Emigdio Newman RN RN jl7 Brad Mccurdy RN RN Scott Vences RN RN [facility] Carol Ann Bellamy
--- NOTE | 2020-11-17 06:32 | EDPHYS ---
Physician Documentation [facility] Name: Chilo Mart Age: 25 yrs Sex: Male : 1995 Arrival Date: 11/17/2020 Time: 04:35 Bed 7 Private MD: ED Physician Ernesto Lopez HPI: 11/17 04:55 This 25 yrs old Male presents to ER via Ambulatory with complaints of maryanne Abdominal Pain. 04:55 The patient presents with abdominal pain in the upper abdomen. Onset: The maryanne symptoms/episode began/occurred just prior to arrival. The symptoms radiate to Associated signs and symptoms: Pertinent positives: nausea and vomiting. The symptoms are described as burning, constant. Modifying factors: The symptoms are alleviated by nothing, the symptoms are aggravated by food. Severity of pain: At its worst the pain was moderate in the emergency department the pain has improved moderately. The patient has experienced similar episodes in the past, several times. Historical: - Allergies: 04:48 No Known Allergies; em - Home Meds: 04:48 None [Active]; em - PMHx: 04:48 None; em - Immunization history:: Adult Immunizations up to date. - Social history:: Smoking status: Patient denies any tobacco usage or history of. - Family history:: not pertinent. ROS: 04:55 Constitutional: Negative for fever, chills, and weight loss, Eyes: Negative for injury, maryanne pain, redness, and discharge, ENT: Negative for injury, pain, and discharge, Neck: Negative for injury, pain, and swelling, Cardiovascular: Negative for chest pain, palpitations, and edema, Respiratory: Negative for shortness of breath, cough, wheezing, and pleuritic chest pain, Back: Negative for injury and pain, : Negative for injury, bleeding, discharge, and swelling, MS/Extremity: Negative for injury and deformity, Skin: Negative for injury, rash, and discoloration, Neuro: Negative for headache, weakness, numbness, tingling, and seizure, Psych: Negative for depression, anxiety, suicide ideation, homicidal ideation, and hallucinations, Allergy/Immunology: Negative for hives, rash, and allergies, Endocrine: Negative for neck swelling, polydipsia, polyuria, polyphagia, and marked weight changes. 04:55 Abdomen/GI: Positive for abdominal pain, abdominal distension, of the epigastric area, right upper quadrant and left upper quadrant. 04:55 Abdomen/GI: Positive for Exam: 04:55 Constitutional: This is a well developed, well nourished patient who is awake, alert, maryanne and in no acute distress. Head/Face: Normocephalic, atraumatic. Eyes: Pupils equal round and reactive to light, extra-ocular motions intact. Lids and lashes normal. Conjunctiva and sclera are non-icteric and not injected. Cornea within normal limits. Periorbital areas with no swelling, redness, or edema. ENT: Nares patent. No nasal discharge, no septal abnormalities noted. Tympanic membranes are normal and external auditory canals are clear. Oropharynx with no redness, swelling, or masses, exudates, or evidence of obstruction, uvula midline. Mucous membranes moist. Neck: Trachea midline, no thyromegaly or masses palpated, and no cervical lymphadenopathy. Supple, full range of motion without nuchal rigidity, or vertebral point tenderness. No Meningismus. Chest/axilla: Normal chest wall appearance and motion. Nontender with no deformity. No lesions are appreciated. Cardiovascular: Regular rate and rhythm with a normal S1 and S2. No gallops, murmurs, or rubs. Normal PMI, no JVD. No pulse deficits. Respiratory: Lungs have equal breath sounds bilaterally, clear to auscultation and percussion. No rales, rhonchi or wheezes noted. No increased work of breathing, no retractions or nasal flaring. Back: No spinal tenderness. No costovertebral tenderness. Full range of motion. Male : Normal genitalia with no discharge or lesions. Skin: Warm, dry with normal turgor. Normal color with no rashes, no lesions, and no evidence of cellulitis. MS/ Extremity: Pulses equal, no cyanosis. Neurovascular intact. Full, normal range of motion. Neuro: Awake and alert, GCS 15, oriented to person, place, time, and situation. Cranial nerves II-XII grossly intact. Motor strength 5/5 in all extremities. Sensory grossly intact. Cerebellar exam normal. Normal gait. Psych: Awake, alert, with orientation to person, place and time. Behavior, mood, and affect are within normal limits. 04:55 Abdomen/GI: Inspection: abdomen appears normal, Bowel sounds: normal, Palpation: moderate abdominal tenderness, in the epigastric area, right upper quadrant and left upper quadrant, Liver: no appreciated palpable abnormalities, Hernia: not appreciated. Vital Signs: 04:43 BP 128 / 85; Pulse 87; Resp 18; Temp 99.1(O); Pulse Ox 99% on R/A; Weight 108.86 kg; em Height 6 ft. 3 in. (190.50 cm); Pain 2/10; 06:43 Pulse 78; Resp 18; Pulse Ox 100% on R/A; Pain 0/10; mg2 08:55 BP 121 / 71; Pulse 78; Resp 17; Pulse Ox 96% ; jl7 04:43 Body Mass Index 30.00 (108.86 kg, 190.50 cm) em MDM: 04:44 Patient medically screened. maryanne 04:58 Differential diagnosis: cholecystitis, Cholelithiasis, diverticulitis, gastritis, maryanne gastroesophageal reflux disease, Hepatitis, non-specific abd pain, pancreatitis, Peptic Ulcer Disease, Perf. Duodenal Ulcer, Pyelonephritis, Ureterolithiasis. Data reviewed: vital signs, nurses notes, lab test result(s), radiologic studies, CT scan. Data interpreted: monitoring tech: rate is 87 beats/min, rhythm is regular. Test interpretation: by ED physician or midlevel provider:. Counseling: I had a detailed discussion with the patient and/or guardian regarding: the historical points, exam findings, and any diagnostic results supporting the discharge/admit diagnosis, lab results, radiology results. 11/17 04:39 Order name: Basic Metabolic Panel; Complete Time: 06:02 mg2 11/17 04:39 Order name: CBC with Diff; Complete Time: 06:02 mg2 11/17 04:39 Order name: Hepatic Function; Complete Time: 06:02 mg2 11/17 04:39 Order name: Lipase; Complete Time: 06:02 mg2 11/17 04:44 Order name: CT Abd/Pelvis - IV Contrast Only maryanne 11/17 04:39 Order name: IV Saline Lock; Complete Time: 04:51 mg2 11/17 06:31 Order name: Abdomen Exam Limited EDWY 11/17 04:39 Order name: Labs collected and sent; Complete Time: 04:51 mg2 Administered Medications: 05:03 Drug: NS 0.9% 1000 ml Route: IV; Rate: 1 bolus; Site: left antecubital; 06:22 Follow up: Response: No adverse reaction; IV Status: Completed infusion; IV Intake: mg2 1000ml 05:05 Drug: ProTONIX 40 mg Route: IVP; Site: left antecubital; 06:22 Follow up: Response: No adverse reaction mg2 05:07 Drug: morphine 2 mg {Note: RASS 0.} Route: IVP; Site: left antecubital; 06:22 Follow up: Response: No adverse reaction mg2 05:09 Drug: Zofran (Ondansetron) 4 mg Route: IVP; Site: left antecubital; 06:22 Follow up: Response: No adverse reaction mg2 05:11 Drug: GI Cocktail without - (Maalox Suspension 30 ml, Lidocaine Liquid 2 % 15 wh ml) Route: PO; 06:22 Follow up: Response: No adverse reaction mg2 06:21 Drug: NS 0.9% 1000 ml Route: IV; Rate: 125 ml/hr; Site: left upper arm; mg2 08:57 Follow up: Response: No adverse reaction; IV Status: Completed infusion jl7 Disposition: 11/17/20 06:31 Discharged to Home. Impression: Abdominal tenderness, Functional dyspepsia. - Condition is Stable. - Discharge Instructions: Abdominal Pain, Adult, Nausea and Vomiting, Adult, Abdominal Pain, Adult, [id number]. - Prescriptions for Bentyl 20 mg Oral Tablet - take 1 tablet by ORAL route every 6 hours As needed; 20 tablet. Protonix 40 mg Oral Tablet, Delayed Release (E.C.) - take 1 tablet by ORAL route every 12 hours; 30 tablet. Zofran 4 mg Oral Tablet - take 1 tablet by ORAL route every 12 hours As needed; 20 tablet. Valtrex 1 g Oral Tablet - take 1 tablet by ORAL route every 8 hours for 7 days; 21 tablet. - Medication Reconciliation Form, Thank You Letter, Antibiotic Education, Prescription Opioid Use, Work release form form. - Follow up: Private Physician; When: 2 - 3 days; Reason: Recheck today's complaints, Continuance of care, Re-evaluation by your physician. Follow up: Rosi Mitchell MD; When: 2 - 3 days; Reason: Recheck today's complaints, Continuance of care, Re-evaluation by your physician. Follow up: Nestor Soliman MD; When: 5 - 6 days; Reason: Recheck today's complaints, Re-evaluation by your physician. - Problem is new. - Symptoms have improved. Signatures: Dispatcher [employer] [facility] Ernesto Lopez MD MD cha Munoz, Edgar, RN RN Emigdio Burk RN RN jl7 Brad Mccurdy, RN ANJALI Scott Vences, RN RN mg2 Corrections: (The following items were deleted from the chart) 06:31 05:05 Abdomen Complete+US.RAD.BRZ ordered. [facility] 06:32 06:31 11/17/2020 06:31 Discharged to Home. Impression: Abdominal tenderness; Functional maryanne dyspepsia. Condition is Stable. Forms are Medication Reconciliation Form, Thank You Letter, Antibiotic Education, Prescription Opioid Use. Follow up: Private Physician; When: 2 - 3 days; Reason: Recheck today's complaints, Continuance of care, Re-evaluation by your physician. Follow up: Rosi Mitchell; When: 2 - 3 days; Reason: Recheck today's complaints, Continuance of care, Re-evaluation by your physician. Problem is new. Symptoms have improved. maryanne 08:59 06:32 11/17/2020 06:31 Discharged to Home. Impression: Abdominal tenderness; Functional jl7 dyspepsia. Condition is Stable. Discharge Instructions: Abdominal Pain, Adult, Nausea and Vomiting, Adult, Abdominal Pain, Adult, [id number]. Prescriptions for Bentyl 20 mg Oral Tablet - take 1 tablet by ORAL route every 6 hours As needed; 20 tablet, Protonix 40 mg Oral Tablet, Delayed Release (E.C.) - take 1 tablet by ORAL route every 12 hours; 30 tablet, Zofran 4 mg Oral Tablet - take 1 tablet by ORAL route every 12 hours As needed; 20 tablet. and Forms are Medication Reconciliation Form, Thank You Letter, Antibiotic Education, Prescription Opioid Use. Follow up: Private Physician; When: 2 - 3 days; Reason: Recheck today's complaints, Continuance of care, Re-evaluation by your physician. Follow up: Rosi Mitchell; When: 2 - 3 days; Reason: Recheck today's complaints, Continuance of care, Re-evaluation by your physician. Follow up: Nestor Soliman; When: 5 - 6 days; Reason: Recheck today's complaints, Re-evaluation by your physician. Problem is new. Symptoms have improved. maryanne
--- NOTE | 2020-11-17 08:32 | RAD REPORT ---
EXAM DESCRIPTION: US - Abdomen Exam Limited - 11/17/2020 6:48 am CLINICAL HISTORY: Abdominal pain. COMPARISON: None. FINDINGS: The gallbladder wall is not thickened. A gallstone is not seen. The biliary tree is normal caliber. IMPRESSION: Unremarkable gallbladder ultrasound.
[2020-11-17 09:06] VITALS: TEMP 99.1
[2020-11-17 09:08] VITALS: BP 121/71; O2SAT 96
--- NOTE | 2020-11-17 11:34 | RAD REPORT ---
EXAM DESCRIPTION: CT - Abdomen Pelvis W Contrast - 11/17/2020 7:17 am CLINICAL HISTORY: The patient is 25 years old and is Male; ABD PAIN TECHNIQUE: Axial computed tomography images of the abdomen and pelvis with intravenous contrast. S agittal and coronal reformatted images were created and reviewed. This CT exam was performed using one or more of the following dose reduction techniques: automated exposure control, adjustment of t he mA and/or kV according to patient size, and/or use of iterative reconstruction technique. COMPARISON: No relevant prior studies available. FINDINGS: Lung bases: Unremarkable. No mass. No consolidation. ABDOMEN: Liver: Unremarkable. No mass. Gallbladder and bile ducts: Unremarkable. No calcified stones. No ductal dilation. Pancreas: Unremarkable. No mass. No ductal dilation. Spleen: Unremarkable. No splenomegaly. Adrenals: Unremarkable. No mass. Kidneys and ureters: Unremarkable. No solid mass. No hydronephrosis. Stomach and bowel: Unremarkable. No obstruction. No mucosal thickening. PELVIS: Appendix: No findings to suggest acute appendicitis. Bladder: Unremarkable. No mass. Reproductive: Unremarkable as visualized. ABDOMEN and PELVIS: Intraperitoneal space: Unremarkable. No free air. No significant fluid collection. Bones/joints: No acute fracture. No dislocation. Soft tissues: Unremarkable. Vasculature: Unremarkable. No abdominal aortic aneurysm. Lymph nodes: Unremarkable. No enlarged lymph nodes. IMPRESSION: Normal abdomen and pelvis CT. Electronically signed by: Martin Magallanes MD 11/17/2020 6:12 AM CDT Due to temporary technical issues with the PACS/Fluency reporting system, reports are being signed by the in house radiologist without review as a courtesy to ensure prompt reporting. The interpreting r adiologist is fully responsible for the content of the report.
== END 2020-11-17 08:59 | disposition home or self-care (01) ==
LOC: ER 04:27
DX: K30 Functional dyspepsia (principal)
CPT/HCPCS: 85025; 80048; 36415; 80076; 83690; 74177; 76705; Q9967; C9113; J2270; J7030; J2405; 96361; 96374; 96375; 99284